=== PATIENT | male | born 2000 | race Caucasian/White ===

== ENCOUNTER 2024-08-21 12:23 | Emergency (ER) | payer SELFPAY ==
[~2024-08-21] VITALS: Ht 175.3 cm; Wt 96.6 kg
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
[2024-08-21 13:56] VITALS: BP 140/80; PULSE 90; RESP 20; TEMP 98; O2SAT 97
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
[2024-08-21] MEDS ORDERED: METH-1181 PO (14:21)
[2024-08-21] MEDS ORDERED: NAP500T PO (14:21)
== END 2024-08-21 14:33 | disposition home or self-care (01) ==
LOC: ER 12:23
DX: M54.50 Low back pain, unspecified (principal); M25.511 Pain in right shoulder; V98.8XXA Other specified transport accidents, initial encounter; Y93.I9 Activity, other involving external motion; Y92.89 Other specified places as the place of occurrence of the external cause; Y99.8 Other external cause status
CPT/HCPCS: 72100